=== PATIENT | female | born 1965 | race Caucasian/White ===

== ENCOUNTER → 2019-09-11 | Day surgery (SDC) | payer OTHER ==
[~2019-09-11] MED LIST: BENADRYL25 M1 PO; BUPIVACAINE 0.25% 30ML SDV INJ ONE; CYCLOBENZAPRINE5 MG PO; FENTANYL CITRATE/PF 100MCG/2 ML INJ ONE; GABAPENTIN300 MG PO; IOPAMIDOL 300 MG/ML 15ML VIAL IT ONE; IOPAMIDOL 300MG/ML 50ML INFUS..BTL IV ONE; LIDOCAINE HCL 1% 30ML-PF VIAL ONE; LIDOCAINE HCL 2% LOCAL INJ 5 ML SDV VIAL INJ ONE; MELOXICAM7.5 MG PO; MIDAZOLAM HCL 2 MG/2 ML VIAL ONE; NORCO 10-325 T1 EACH PO; NORCO 7.5-3251 EACH PO; PROPOFOL IV EMULSION 10 MG/ML 20 ML VIAL ONE; TRIAMCINOLONE ACET 40 MG/ML VIAL ONE; ZORVOLEX PO
[2019-09-11 07:20] VITALS: BP 112/86
== END | disposition home or self-care (01) ==
LOC: OR 05:29
PROVIDERS: ATTEND Physical Medicine & Rehabilitation Pain Medicine
DX: M46.1 Sacroiliitis, not elsewhere classified (principal); G57.02 Lesion of sciatic nerve, left lower limb; M79.18 Myalgia, other site; G89.29 Other chronic pain; Z01.810 Encounter for preprocedural cardiovascular examination
CPT/HCPCS: 20552; G0259; 76000; 93005; J2001; J2250; J3010; J3301; Q9967